=== PATIENT | male | born 1990 | race Caucasian/White ===

== ENCOUNTER 2024-09-28 11:59 | Day surgery (SDC) | payer OTHER ==
[2024-09-26 15:51] VITALS: BMI 24.4
[2024-09-28] MEDS ORDERED: PROPOFOL 20 ML ONE (13:02)
[2024-09-28] MEDS ORDERED: KETAMINE HCL 100 MG/ML - 5ML VIAL ONE (13:02)
[2024-09-28] MEDS ORDERED: SUCCINYLCHOLINE CHLORIDE 200 MG/10 ML SYRINGE ONE (13:03)
[2024-09-28 14:03] VITALS: RESP 18; TEMP 97.2
[2024-09-28 14:14] VITALS: BP 136/86; PULSE 73
== END 2024-09-28 14:15 ==
LOC: FECT 11:59
PROVIDERS: ATTEND Psychiatry & Neurology Psychiatry
PROC: GZB4ZZZ Other Electroconvulsive Therapy (ICD-10-PCS; principal; 2024-09-28 13:10)
DX: F25.0 Schizoaffective disorder, bipolar type (principal)
CPT/HCPCS: 90870; 94760

== ENCOUNTER 2024-09-29 10:45 | Day surgery (SDC) | payer OTHER ==
[2024-09-26 15:56] VITALS: BMI 24.4
[2024-09-29] MEDS ORDERED: KETAMINE HCL 100 MG/ML - 5ML VIAL ONE (12:06)
[2024-09-29 13:13] VITALS: PULSE 86; RESP 18; TEMP 98.3
[2024-09-29 13:38] VITALS: BP 146/94
== END 2024-09-29 13:30 | disposition home or self-care (01) ==
LOC: FECT 10:45
PROVIDERS: ATTEND Student in an Organized Health Care Education/Training Program
PROC: GZB4ZZZ Other Electroconvulsive Therapy (ICD-10-PCS; principal; 2024-09-29 12:15)
DX: F25.0 Schizoaffective disorder, bipolar type (principal)
CPT/HCPCS: 90870; 94760

== ENCOUNTER 2024-10-03 08:22 | Day surgery (SDC) | payer OTHER ==
[2024-09-26 16:02] VITALS: BMI 24.4
[2024-10-03] MEDS ORDERED: KETAMINE HCL 100 MG/ML - 5ML VIAL ONE (08:57)
[2024-10-03 09:52] VITALS: TEMP 98.1
[2024-10-03 10:04] VITALS: RESP 16
[2024-10-03 10:43] VITALS: BP 124/91; PULSE 89
== END 2024-10-03 10:35 | disposition home or self-care (01) ==
LOC: FECT 08:22
PROVIDERS: ATTEND Student in an Organized Health Care Education/Training Program
PROC: GZB4ZZZ Other Electroconvulsive Therapy (ICD-10-PCS; principal; 2024-10-03 09:12)
DX: F25.0 Schizoaffective disorder, bipolar type (principal)
CPT/HCPCS: 90870; 94760

== ENCOUNTER 2024-10-10 10:51 | Day surgery (SDC) | payer OTHER ==
[2024-09-27 16:46] VITALS: BMI 24.4
[2024-10-10] MEDS ORDERED: KETAMINE HCL 100 MG/ML - 5ML VIAL ONE (12:33)
[2024-10-10] MEDS ORDERED: PROPOFOL 20 ML ONE (12:57)
[2024-10-10 14:12] VITALS: BP 124/91; PULSE 93; RESP 18
[2024-10-10 14:37] VITALS: TEMP 97.9
== END 2024-10-10 14:35 ==
LOC: FECT 10:51
PROVIDERS: ATTEND Student in an Organized Health Care Education/Training Program
PROC: GZB4ZZZ Other Electroconvulsive Therapy (ICD-10-PCS; principal; 2024-10-10 12:58)
DX: F25.0 Schizoaffective disorder, bipolar type (principal)
CPT/HCPCS: 90870; 94760

== ENCOUNTER 2024-10-12 11:14 | Day surgery (SDC) | payer OTHER ==
[2024-09-28 14:10] VITALS: BMI 24.4
[2024-10-12] MEDS ORDERED: PROPOFOL 20 ML ONE (12:00)
[2024-10-12] MEDS ORDERED: SUCCINYLCHOLINE CHLORIDE 200 MG/10 ML SYRINGE ONE (12:00)
[2024-10-12 12:37] VITALS: TEMP 97
[2024-10-12 13:21] VITALS: RESP 18
[2024-10-12 13:23] VITALS: BP 133/87; PULSE 85
== END 2024-10-12 13:20 ==
LOC: FECT 11:14
PROVIDERS: ATTEND Psychiatry & Neurology Psychiatry
PROC: GZB4ZZZ Other Electroconvulsive Therapy (ICD-10-PCS; principal; 2024-10-12 12:06)
DX: F25.0 Schizoaffective disorder, bipolar type (principal)
CPT/HCPCS: 90870; 94760

== ENCOUNTER 2024-10-19 10:32 | Day surgery (SDC) | payer OTHER ==
[2024-10-09 16:18] VITALS: BMI 24.4
[2024-10-19 11:02] VITALS: RESP 16
[2024-10-19] MEDS ORDERED: KETAMINE HCL 100 MG/ML - 5ML VIAL ONE (11:45)
[2024-10-19 13:05] VITALS: TEMP 97
[2024-10-19 13:19] VITALS: BP 142/95; PULSE 92
== END 2024-10-19 13:20 ==
LOC: FECT 10:32
PROVIDERS: ATTEND Psychiatry & Neurology Psychiatry
PROC: GZB4ZZZ Other Electroconvulsive Therapy (ICD-10-PCS; principal; 2024-10-19 11:56)
DX: F25.9 Schizoaffective disorder, unspecified (principal)
CPT/HCPCS: 90870; 94760

== ENCOUNTER 2024-10-20 11:51 | Day surgery (SDC) | payer OTHER ==
[2024-10-09 16:21] VITALS: BMI 24.4
[2024-10-20] MEDS ORDERED: KETAMINE HCL 100 MG/ML - 5ML VIAL ONE (12:25)
[2024-10-20] MEDS ORDERED: PROPOFOL 20 ML ONE (12:36)
[2024-10-20 12:57] VITALS: RESP 16
[2024-10-20 14:40] VITALS: BP 128/92; PULSE 93; TEMP 97.6
== END 2024-10-20 13:50 ==
LOC: FECT 11:51
PROVIDERS: ATTEND Student in an Organized Health Care Education/Training Program
PROC: GZB4ZZZ Other Electroconvulsive Therapy (ICD-10-PCS; principal; 2024-10-20 12:40)
DX: F25.0 Schizoaffective disorder, bipolar type (principal)
CPT/HCPCS: 90870; 94760

== ENCOUNTER 2024-10-26 09:02 | Day surgery (SDC) | payer OTHER ==
[2024-10-25 13:25] VITALS: BMI 24.4
[2024-10-26 09:37] VITALS: RESP 16
[2024-10-26] MEDS ORDERED: KETAMINE HCL 100 MG/ML - 5ML VIAL ONE (09:52)
[2024-10-26 12:38] VITALS: BP 124/84; PULSE 86; TEMP 98.3
== END 2024-10-26 11:35 ==
LOC: FECT 09:02
PROVIDERS: ATTEND Student in an Organized Health Care Education/Training Program
PROC: GZB4ZZZ Other Electroconvulsive Therapy (ICD-10-PCS; principal; 2024-10-26 10:06)
DX: F32.A Depression, unspecified (principal)
CPT/HCPCS: 90870; 94760

== ENCOUNTER 2024-11-07 09:27 | Day surgery (SDC) | payer OTHER ==
[2024-11-06 08:22] VITALS: BMI 24.4
[2024-11-07] MEDS ORDERED: KETAMINE HCL 100 MG/ML - 5ML VIAL ONE (10:32)
[2024-11-07 11:53] VITALS: RESP 18; TEMP 98
[2024-11-07 11:54] VITALS: BP 124/77; PULSE 89
== END 2024-11-07 11:55 ==
LOC: FECT 09:27
PROVIDERS: ATTEND Student in an Organized Health Care Education/Training Program
PROC: GZB4ZZZ Other Electroconvulsive Therapy (ICD-10-PCS; principal; 2024-11-07 10:43)
DX: F25.9 Schizoaffective disorder, unspecified (principal)
CPT/HCPCS: 90870; 94760